=== PATIENT | female | born 1965 | race Caucasian/White ===

== ENCOUNTER 2019-10-05 14:14 | Inpatient (IN) ==
[2019-10-05] MEDS ORDERED: SODIUM CHLORIDE 0.9% 1,000 ML IV STA (14:59)
[2019-10-05] MEDS ORDERED: ONDANSETRON 4 MG/2 ML VIAL IV STA (15:00)
[2019-10-05 15:34] LABS: Basophils # 0.1 10*3/uL (0.0-0.2); Basophils % 1.2 % (0.0-0.8); Eosinophils # 0.3 10*3/uL (0.0-0.87); Hematocrit 30.9 VOL% (35.7-47.0); Hemoglobin 10.3 GM/DL (12.0-16.0); Immature Granulocytes % 0.4 %; Immature Granulocytes Absolute 0.03 #; Lymphocytes # 3.2 10*3/uL (1.4-4.0); Lymphocytes % 37.9 % (21.3-54.2); Mean Corpuscular HGB Conc 33.3 GM/DL (32-36); Mean Corpuscular Volume 72.4 FL (87-102); Mean Platelet Volume 9.3 FL (9.6-12.0); Monocytes % 6.8 % (1.7-12.7); Neutrophils % 49.7 % (38.7-73.9); Platelet Count 494 T/CUMM (130-400); Red Blood Count 4.27 MC/CUMM (3.8-5.5); Red Cell Distribution Width 13.2 % (9.3-17.3); White Blood Count 8.4 T/CUMM (4-12)
[2019-10-05 15:49] LABS: Calcium 8.7 MG/DL (8.5-10.1); Osmolality,Calculated 240.2 MOS/KG (273-304)
[2019-10-05 16:35] LABS: Alanine Aminotransferase 23 U/L (13-56); Albumin 4.2 G/DL (3.4-5.0); Alkaline Phosphatase 166 U/L (45-117); Aspartate Amino Transferase 20 U/L (0-37); Bilirubin,Total < 0.39 MG/DL (0.2-1.0); Blood Urea Nitrogen 11 MG/DL (7-18); Calcium 8.9 MG/DL (8.5-10.1); Estimated Glom Filtration Rate 61 ML/MIN; Glucose 79 MG/DL (74-106); Osmolality,Calculated 241.1 MOS/KG (273-304); Total Protein 7.8 G/DL (6.4-8.3)
[2019-10-05] MEDS ORDERED: DEXTROSE 50% 25 GM/50 ML VIAL IV PRN (17:50)
[2019-10-05] MEDS ORDERED: GLUCAGON 1 MG VIAL IM PRN (17:50)
[2019-10-05] MEDS ORDERED: MAGNESIUM SULF RIDER 4 GM in PREMIX 1 EACH IV SCH (18:30)
[2019-10-05] MEDS ORDERED: SODIUM CHLORIDE 0.9% 1,000 ML IV SCH (18:30)
[2019-10-05] MEDS ORDERED: traMADol 50 MG TABLET PO PRN (19:05)
[2019-10-05] MEDS ORDERED: THIAMINE 200 MG/2 ML VIAL IV ONE (19:30)
[2019-10-05 20:40] LABS: Calcium 8.7 MG/DL (8.5-10.1); Osmolality,Calculated 246.8 MOS/KG (273-304)
[2019-10-05] MEDS ORDERED: ZALEPLON 5 MG CAPSULE PO PRN (21:00)
[2019-10-06 00:54] LABS: Calcium 8.6 MG/DL (8.5-10.1); Osmolality,Calculated 254.2 MOS/KG (273-304)
[2019-10-06 05:38] LABS: Basophils # 0.1 10*3/uL (0.0-0.2); Basophils % 0.9 % (0.0-0.8); Eosinophils # 0.4 10*3/uL (0.0-0.87); Hematocrit 30.8 VOL% (35.7-47.0); Hemoglobin 10.1 GM/DL (12.0-16.0); Immature Granulocytes % 0.2 %; Immature Granulocytes Absolute 0.02 #; Lymphocytes % 41.6 % (21.3-54.2); Mean Corpuscular HGB Conc 32.8 GM/DL (32-36); Mean Corpuscular Volume 74.6 FL (87-102); Mean Platelet Volume 9.6 FL (9.6-12.0); Monocytes % 9.8 % (1.7-12.7); Neutrophils % 43.5 % (38.7-73.9); Platelet Count 491 T/CUMM (130-400); Red Blood Count 4.13 MC/CUMM (3.8-5.5); Red Cell Distribution Width 13.2 % (9.3-17.3); White Blood Count 9.5 T/CUMM (4-12)
[2019-10-06 05:59] LABS: Calcium 8.6 MG/DL (8.5-10.1); Osmolality,Calculated 258.8 MOS/KG (273-304)
[2019-10-06 07:41] VITALS: BP 127/89
[2019-10-06] MEDS ORDERED: ALPRAZolam 0.25 MG TABLET PO SCH (09:00)
[2019-10-06] MEDS ORDERED: PANTOPRAZOLE 40 MG TABLET PO SCH (09:00)
[2019-10-06] MEDS ORDERED: atenoloL 50 MG TABLET PO SCH (09:00)
[2019-10-06] MEDS ORDERED: THIAMINE 100 MG TABLET PO SCH (09:00)
[2019-10-06] MEDS ORDERED: FLUoxetine 20 MG CAPSULE PO SCH (09:00)
[2019-10-06] MEDS ORDERED: MULTIVITAMIN (CENTRUM) TABLET PO SCH (09:00)
[2019-10-06] MEDS ORDERED: FOLIC ACID 1 MG TABLET PO SCH (09:00)
== END 2019-10-06 12:32 | disposition home or self-care (01) | DRG 897 ==
LOC: N.ED 14:14 → N.EDINP 17:50 → N.2E 18:51
PROVIDERS: ADMIT Internal Medicine; ATTEND Internal Medicine